=== PATIENT | female | born 1980 | race Caucasian/White ===

== ENCOUNTER 2016-10-24 12:57 | Day surgery (SDC) | payer OTHER ==
[~2016-10-24 12:57] MED LIST: DIPRIVAN 200 MG/20 ML IV ONE; Kenalog-40 IM ONE; Lactated Ringers 1,000 ML IV ONE; Sensorcaine 0.25% 10 ML IJ ONE
[2016-10-24] MEDS ORDERED: XYLOCAINE 1% HCL 20 ML MDV ONE (15:09)
--- NOTE | 2016-10-24 16:38 | XRAY ---
Indication: Right SI joint injection. Intraoperative fluoroscopy was provided for 25 seconds. 2 digital spot images submitted for interpretation demonstrates posterior spinal needle with the tip projecting over the superior right SI joint. Tiny amount of contrast injected for needle tip placement. Correlate with intraoperative findings/report.
--- NOTE | 2016-10-24 17:01 | XRAY ---
25 seconds fluoroscopy time in surgery for right SI joint injection.
== END 2016-10-24 16:00 | disposition home or self-care (01) ==
LOC: SDC-PAIN 12:57
PROVIDERS: ATTEND Pain Medicine Interventional Pain Medicine
DX: M46.1 Sacroiliitis, not elsewhere classified (principal); M47.816 Spondylosis without myelopathy or radiculopathy, lumbar region; M54.5 Low back pain; Z79.891 Long term (current) use of opiate analgesic
CPT/HCPCS: 01992; 27096; 72020; 77003; J2704; J3301